=== PATIENT | female | born 1955 | race Caucasian/White ===

== ENCOUNTER 2018-06-12 10:13 | Day surgery (SDC) | payer BC, MEDICAID ==
[2018-06-12] MEDS ORDERED: FENTAnyl 50 MCG/ML VIAL (12:28)
[2018-06-12] MEDS ORDERED: MIDAZOLAM 1 MG/ML 2 ML INJ ×2 (12:28)
== END 2018-06-12 16:44 | disposition home or self-care (01) ==
LOC: GIL 10:13
DX: Z12.11 Encounter for screening for malignant neoplasm of colon (principal); K64.8 Other hemorrhoids
CPT/HCPCS: 45378